=== PATIENT | female | born 1960 | race African-American/Black ===

== ENCOUNTER 2019-07-19 14:11 | Emergency (ER) | payer MEDICARE, OTHER ==
[~2019-07-19] VITALS: Ht 165.1 cm; Wt 70.3 kg
[~2019-07-19 14:11] MED LIST: CARI250T PO; QUET100T PO; TRAZ-182 PO; [UNRECOGNIZED DRUG - OTHER] PO
--- NOTE | 2019-07-19 14:49 | NUR ---
Patient discharged to home in stable conditon. Written and verbal after care instructions given. Patient verbalizes understanding of instructions.pt walks in steady gait.
== END 2019-07-19 14:51 | disposition home or self-care (01) ==
LOC: ER 14:12
DX: M54.5 Low back pain (principal); Z88.5 Allergy status to narcotic agent; Z88.8 Allergy status to other drugs, medicaments and biological substances; Z79.899 Other long term (current) drug therapy
CPT/HCPCS: A4663

== ENCOUNTER 2019-08-09 08:29 | Emergency (ER) | payer MEDICARE, OTHER ==
[~2019-08-09] VITALS: Ht 165.1 cm; Wt 70.3 kg
[2019-08-09] MEDS ORDERED: TETRACAINE HCL 0.5% OPHT DROP 2 ML BOTTLE ONE (08:48)
--- NOTE | 2019-08-09 09:09 | NUR ---
Patient discharged to home in stable conditon. Written and verbal after care instructions given. Patient verbalizes understanding of instructions.
[2019-08-09] MEDS ORDERED: FLUORESCEIN SODIUM 1 MG STRIP OP ONE (09:15)
[2019-08-09] MEDS ORDERED: TETRACAINE HCL 0.5% OPHT DROP 2 ML BOTTLE OP ONE (09:15)
== END 2019-08-09 09:23 | disposition home or self-care (01) ==
LOC: ER 08:29
DX: S05.01XA Injury of conjunctiva and corneal abrasion without foreign body, right eye, initial encounter (principal); Z88.5 Allergy status to narcotic agent; Z88.8 Allergy status to other drugs, medicaments and biological substances; Z79.899 Other long term (current) drug therapy; X58.XXXA Exposure to other specified factors, initial encounter; Y93.89 Activity, other specified; Y92.89 Other specified places as the place of occurrence of the external cause; Y99.8 Other external cause status
CPT/HCPCS: A4663

== ENCOUNTER 2019-09-15 13:24 | Emergency (ER) | payer MEDICARE, OTHER ==
[~2019-09-15] VITALS: Ht 165.1 cm; Wt 77.1 kg
[2019-09-15 14:15] LABS: *BILIRUBIN,URIN 3+ (NEGATIVE); *BLOOD, URINE 1+ (NEGATIVE); *CLARITY,URINE CLOUDY (CLEAR); *KETONES,URINE NEGATIVE (NEGATIVE); *UROBILINOGEN,URINE >=8.0 E.U./dl (NORMAL); LEUKOCYTE ESTERASE ,URINE 3+ (NEGATIVE); NITRITE, URINE POSITIVE (NEGATIVE); PH,URINE 5.5 (5.0-8.0); UGLUCOSE TRACE (NEGATIVE)
[2019-09-15 14:21] LABS: CREATININE 0.8 mg/dL (0.6-1.3); POTASSIUM 3.9 mmol/L (3.5-5.1)
[2019-09-15 14:25] LABS: *COLOR,URINE Orange (YELLOW)
[2019-09-15 14:26] LABS: BASOPHILS % (AUTO) 0.5 % (0.0-2.0); EOSINOPHILS % (AUTO) 0.1 % (0.0-7.0); HEMATOCRIT 34.6 % (31.2-41.9); HEMOGLOBIN 11.5 g/dL (10.9-14.3); LYMPHOCYTES # (AUTO) 2.1 K/uL (20.0-40.0); LYMPHOCYTES % (AUTO) 29.1 % (20.5-51.5); MEAN CORPUSCULAR HEMOGLOBIN 29.7 uug (24.7-32.8); MEAN CORPUSCULAR HGB CONC 33 g/dL (32.3-35.6); MEAN CORPUSCULAR VOLUME 89.6 fL (75.5-95.3); MONOCYTES # (AUTO) 0.6 K/uL (2.0-10.0); MONOCYTES % (AUTO) 8.8 % (0.0-11.0); NEUTROPHILS # (AUTO) 4.4 K/uL (1.8-8.9); NEUTROPHILS % (AUTO) 61.5 % (38.5-71.5); PLATELET COUNT (AUTO) 334 K/uL (179-408); RED BLOOD CELL COUNT(AUTO) 3.86 MIL/uL (3.63-4.92); WHITE BLOOD COUNT (AUTO) 7.2 K/uL (3.8-11.8)
[2019-09-15 14:27] LABS: BACTERIA,URINE MANY /HPF (NONE SEEN); SQUAMOUS EPITHELIAL CELL,UR FEW /HPF (NONE SEEN); WBC,URINE TNTC /HPF (0-3)
[2019-09-15] MEDS ORDERED: SULFAMETH/TRIMETH 800/160 MG TABLET ONE (14:39)
--- NOTE | 2019-09-15 14:48 | NUR ---
Patient discharged to home in stable conditon. Written and verbal after care instructions given. Patient verbalizes understanding of instructions.PT WITH DAUGHTER.
[2019-09-15] MEDS: SULFAMETH/TRIMETH 800/160 MG TABLET PO ONE ×2 (14:50→14:51)
== END 2019-09-15 14:49 | disposition home or self-care (01) ==
LOC: ER 13:24
DX: N39.0 Urinary tract infection, site not specified (principal); Z90.49 Acquired absence of other specified parts of digestive tract; Z88.5 Allergy status to narcotic agent; Z88.8 Allergy status to other drugs, medicaments and biological substances; Z79.899 Other long term (current) drug therapy
CPT/HCPCS: 36415; 85025; 87077; 87086; A4663

== ENCOUNTER 2020-02-02 15:19 | Emergency (ER) | payer MEDICARE, OTHER ==
[~2020-02-02] VITALS: Ht 165.1 cm; Wt 72.6 kg
[2020-02-02] MEDS ORDERED: METH10TA2 PO (15:36)
--- NOTE | 2020-02-02 15:39 | NUR ---
DR. MCDONALD AT BEDSIDE FOR MSE
--- NOTE | 2020-02-02 15:41 | NUR ---
Pt walked in ER w/ C/O N/V/D, while drinking big cup of coffee.
[2020-02-02] MEDS ORDERED: ONDANSETRON ODT 4 MG TAB.RAPDIS SL ONE (15:45)
[2020-02-02] MEDS ORDERED: DIPHENOXYLATE HCL/ATROP SULF TABLET PO ONE (15:45)
[2020-02-02] MEDS ORDERED: ONDANSETRON ODT 4 MG TAB.RAPDIS ONE ×2 (15:49→15:52)
[2020-02-02] MEDS ORDERED: DIPHENOXYLATE HCL/ATROP SULF TABLET ONE (15:49)
--- NOTE | 2020-02-02 16:04 | NUR ---
Patient discharged to home in stable condition. Written and verbal after care instructions given. Patient verbalizes understanding of instructions. Stressed follow up or return to ER for worsening s/s. Patient ambulating with steady gait. NAD noted. No N / V noted
[2020-02-02 16:06] VITALS: BP 113/82
== END 2020-02-02 16:04 | disposition home or self-care (01) ==
LOC: ER 15:21
DX: A08.4 Viral intestinal infection, unspecified (principal); R06.02 Shortness of breath; R53.83 Other fatigue; Z20.828 Contact with and (suspected) exposure to other viral communicable diseases; Z85.3 Personal history of malignant neoplasm of breast
CPT/HCPCS: A4663; Q0162

== ENCOUNTER 2020-08-14 07:49 | Emergency (ER) | payer MEDICARE, OTHER ==
[~2020-08-14] VITALS: Ht 165.1 cm; Wt 71.7 kg
[~2020-08-14 07:49] MED LIST changes: +METH10TA2 PO
--- NOTE | 2020-08-14 08:05 | NUR ---
Urine sent to lab
--- NOTE | 2020-08-14 08:05 | NUR ---
Pt presents to ER with c/o of pain and burning during urination and Rt lower back pain x 2 days with on and off fevers. Placed in [facility] 1A. NAD noted Denies shortness of breath or chest pain. Seen by Dr. Ignacio
[2020-08-14 08:23] LABS: *BILIRUBIN,URIN NEGATIVE (NEGATIVE); *CLARITY,URINE CLEAR (CLEAR); *COLOR,URINE YELLOW (YELLOW); *KETONES,URINE NEGATIVE (NEGATIVE); LEUKOCYTE ESTERASE ,URINE 1+ (NEGATIVE); NITRITE, URINE POSITIVE (NEGATIVE); UGLUCOSE NEGATIVE (NEGATIVE)
[2020-08-14 08:24] LABS: *BLOOD, URINE TRACE (NEGATIVE)
[2020-08-14] MEDS ORDERED: CEPH500T PO (08:40)
--- NOTE | 2020-08-14 08:47 | NUR ---
attempted to do covid swab, pt refused stated it is too painful and cannot do it. Dr. Ignacio made aware.
--- NOTE | 2020-08-14 08:52 | NUR ---
Per Dr. Ignacio, pt stable for discharge. DC instructions given and reviewed with patient. Verbalized understanding. Left ER in stable condition.
[2020-08-14 12:40] LABS: BACTERIA,URINE MANY /HPF (NONE SEEN); SQUAMOUS EPITHELIAL CELL,UR MODERATE /HPF (NONE SEEN); WBC,URINE 20-50 /HPF (0-3)
== END 2020-08-14 08:52 | disposition home or self-care (01) ==
LOC: ER 07:49
DX: N39.0 Urinary tract infection, site not specified (principal); Z85.3 Personal history of malignant neoplasm of breast; Z90.13 Acquired absence of bilateral breasts and nipples; Z90.710 Acquired absence of both cervix and uterus; Z79.899 Other long term (current) drug therapy
CPT/HCPCS: 87086; A4663

== ENCOUNTER 2020-10-10 09:47 | Emergency (ER) | payer MEDICARE, OTHER ==
[~2020-10-10] VITALS: Ht 162.6 cm; Wt 74.8 kg
[~2020-10-10 09:47] MED LIST changes: +CEPH500T PO
--- NOTE | 2020-10-10 10:22 | NUR ---
Patient discharged to home in stable condition. Written and verbal after care instructions given. Patient verbalizes understanding of instructions. Stressed follow up or return to ER for worsening s/s.
== END 2020-10-10 10:22 | disposition home or self-care (01) ==
LOC: ER 09:47
DX: J02.9 Acute pharyngitis, unspecified (principal); Z20.822 Contact with and (suspected) exposure to COVID-19
CPT/HCPCS: 99283; U0003; A4663

== ENCOUNTER 2022-10-12 16:15 | Emergency (ER) | payer MEDICARE, OTHER ==
[~2022-10-12] VITALS: Ht 162.6 cm; Wt 71.7 kg
[~2022-10-12 16:15] MED LIST changes: +METH-817 PO; -METH10TA2 PO
[2022-10-12] MEDS ORDERED: IBUPROFEN 600 MG TABLET PO ONE (16:30)
[2022-10-12] MEDS ORDERED: IBUPROFEN 600 MG TABLET ONE (16:31)
[2022-10-12 16:40] LABS: *BILIRUBIN,URIN NEGATIVE (NEGATIVE); *BLOOD, URINE NEGATIVE (NEGATIVE); *CLARITY,URINE CLEAR (CLEAR); *COLOR,URINE YELLOW (YELLOW); *KETONES,URINE NEGATIVE (NEGATIVE); *UROBILINOGEN,URINE 0.2 E.U./dl (NORMAL); LEUKOCYTE ESTERASE ,URINE TRACE (NEGATIVE); NITRITE, URINE NEGATIVE (NEGATIVE); PH,URINE 5.5 (5.0-8.0); UGLUCOSE NEGATIVE (NEGATIVE)
[2022-10-12 16:43] LABS: BACTERIA,URINE FEW /HPF (NONE SEEN); RBC,URINE 0-3 /HPF (0-3); SQUAMOUS EPITHELIAL CELL,UR MODERATE /HPF (NONE SEEN)
[2022-10-12] MEDS ORDERED: KETOROLAC TROMETHAMINE 15 MG INJ IM ONE (16:45)
[2022-10-12 16:46] LABS: *URINE HCG, QUAL NEGATIVE (NEGATIVE)
--- NOTE | 2022-10-12 16:48 | NUR ---
IV line insertion & pelvic exam were cancelled by , pending chest [email or web address].
[2022-10-12] MEDS ORDERED: KETOROLAC TROMETHAMINE 15 MG INJ ONE (16:50)
[2022-10-12 16:56] LABS: HEMATOCRIT 31.9 % (31.2-41.9); MEAN CORPUSCULAR HEMOGLOBIN 29.3 uug (24.7-32.8); MEAN CORPUSCULAR VOLUME 91.1 fL (75.5-95.3); PLATELET COUNT (AUTO) 338 K/uL (179-408)
[2022-10-12 17:16] LABS: CREATININE 0.8 mg/dL (0.6-1.3); POTASSIUM 4.2 mmol/L (3.5-5.1)
[2022-10-12 17:25] LABS: BILIRUBIN,DIRECT 0.1 mg/dL (0.0-0.2); BILIRUBIN,TOTAL 0.3 mg/dL (0.2-1.0); TOTAL PROTEIN, SERUM 7.1 g/dL (6.4-8.2)
[2022-10-12 17:28] LABS: THYROID STIMULATING HORMONE 2.338 mIU/mL (0.358-3.740)
[2022-10-12] MEDS ORDERED: NITR100C6 PO (17:58)
--- NOTE | 2022-10-12 18:19 | NUR ---
Patient discharged to home by Dr Lopez in stable condition with brisk steady gait. Written and verbal after care instructions given. Patient verbalized understanding and compliance of instructions. Stressed follow up with primary doctor or return to ER for worsening s/s.
[2022-10-12 18:24] VITALS: BP 126/69
== END 2022-10-12 18:19 | disposition home or self-care (01) ==
LOC: ER 16:19
DX: N39.0 Urinary tract infection, site not specified (principal); R50.9 Fever, unspecified; J02.8 Acute pharyngitis due to other specified organisms; B97.89 Other viral agents as the cause of diseases classified elsewhere; R07.89 Other chest pain; Z90.710 Acquired absence of both cervix and uterus; Z88.5 Allergy status to narcotic agent; Z88.8 Allergy status to other drugs, medicaments and biological substances; Z79.899 Other long term (current) drug therapy
CPT/HCPCS: 99284; 71045; 80076; 80048; 81001; 84703; 84443; 85025; 96372; J1885; A4663